=== PATIENT | male | born 1950 | race Caucasian/White ===

== ENCOUNTER 2022-11-21 11:09 | Day surgery (SDC) | payer MEDICARE, BC, SELFPAY ==
[2022-11-21 11:24] VITALS: BP 163/87; PULSE 64; RESP 17; TEMP 36.4; O2SAT 97
[2022-11-21] MEDS: Tropicam./Phenyleph. (1/2.5%) 5 ML BTL OD ×3 (11:33→11:42)
--- NOTE | 2022-11-21 11:41 | W.ANESPRE ---
General Info Date of Service Date Performed: 11/21/22 Height: 6 ft Weight: 111.13 kg Body Mass Index (BMI): 33.2 Surgical Procedure: Operation Date: 11/21/22 14:40 Proposed Procedure Side Surgeon p Cataract Extraction with IOL Implant Right Sourav Joshi MD Meds Allergies and Home Medications Allergies Allergy/AdvReac Type Severity Reaction Status Date / Time cholestyramine Allergy Intermediate Unverified 11/21/22 11:17 [From Questran] metformin Allergy Intermediate Skin Rash Unverified 11/21/22 11:17 ramipril [From Altace] Allergy Intermediate Unverified 11/21/22 11:17 allopurinol Allergy Mild Unverified 11/21/22 11:17 diltiazem Allergy Unknown Unverified 11/21/22 11:17 niacin Allergy Unknown Unverified 11/21/22 11:17 isosorbide Allergy Unverified 11/21/22 11:17 sucrose [From Questran] Allergy Unverified 11/21/22 11:17 Home Medication Medication Instructions Recorded Lipitor 80 mg tablet (atorvastatin) 80 mg PO DAILY 03/02/17 Mitigare 0.6 mg capsule 0.6 mg PO DIRECTED 03/02/17 (colchicine) Nitrostat 0.4 mg sublingual tablet 0.4 mg sublingual DIRECTED 03/02/17 (nitroglycerin) Norvasc 5 mg tablet (amlodipine) 5 mg PO DAILY 03/02/17 Zetia 10 mg tablet (ezetimibe) 10 mg PO DAILY 03/02/17 atenolol 50 mg tablet 50 mg PO DAILY 03/02/17 aspirin 81 mg tablet,delayed 81 mg PO DAILY 11/18/22 release fluticasone propionate 50 1 spray intranasal DAILY 11/18/22 mcg/actuation nasal spray,suspension glipizide 10 mg tablet, extended 10 mg PO DAILY 11/18/22 release 24 hr indomethacin 25 mg capsule 25 mg PO DIRECTED 11/18/22 lisinopril 20 mg tablet 20 mg PO DAILY 11/18/22 metronidazole 0.75 % topical gel 1 applic topical DIRECTED 11/18/22 semaglutide 0.25 mg or 0.5 mg (2 0.5 mg subcut DIRECTED 11/18/22 mg/3 mL) subcutaneous pen injector ([employer]) Current Visit Medications: Current Medications Generic Name Dose Route Start Last Admin Trade Name Freq PRN Reason Stop Dose Admin Acetaminophen 1,000 mg 11/21/22 06:00 Acetaminophen 500 Mg Tab PO Q4H PRN PRN Miscellaneous Medication 0 ml 11/21/22 06:00 11/21/22 11:38 Tropicam./Phenyleph. (1/2.5%) 5 Ml Btl OD 1 drp DIRECTED JOHN Administration Miscellaneous Medication 0 ml 11/21/22 06:00 Prednisolone 1%, Moxifloxacin 0.5%, Nepafenac 0.1% 5ml Btl OD DIRECTED JOHN Tetracaine HCl 0 ml 11/21/22 06:00 Tetracaine 0.5% 4 Ml Btl OD DIRECTED JOHN PFSH Active Problems Active Problems: Problem Status Onset Code Nuclear age-related cataract, right eye H25.11 Posterior subcapsular age-related cataract, right eye H25.041 Medical History Medical History CAD (coronary artery disease) CKD (chronic kidney disease) Closed right ankle fracture Gout Hyperlipidemia Hypertension Rosacea Type 2 diabetes mellitus Surgical History Surgical History Colonoscopy - MAC (04/16/17) Coronary Artery Bypass G[place] (CABG) x2 1986, 1998 Vasectomy Tobacco Smoking/Tobacco Use Status: Former Tobacco Use Alcohol Alcohol Intake: current Alcohol intake frequency: holidays/special occasions only Alcohol type: beer Substance Use Substance use: Never Substance use type: does not use Counseling provided: treatment program Vital Signs and Lab Results Vital Signs Most Recent Vital Signs in EMR: Most Recent Vital Signs Temp Pulse Resp BP Pulse Ox 36.4 C L 64 17 163/87 H 97 11/21/22 11:24 11/21/22 11:24 11/21/22 11:24 11/21/22 11:24 11/21/22 11:24 Point of Care Results Point of Care Results: Finger Stick Blood Glucose 130 11/21/22 11:24 Lab Results Blood Type / Crossmatch: No Data to Display Complete Blood Count: No Data to Display Complete Metabolic Panel: No Data to Display Liver Function Panel: No Data to Display Coagulation Panel: No Data to Display Cardiac Panel: No Data to Display Arterial Blood Gas: No Data to Display Venous Blood Gas: No Data to Display Pancreas Panel: No Data to Display Thyroid Panel: No Data to Display Infectious Disease: No Data to Display Blood Cultures: No Data to Display Toxicology Panel: No Data to Display Anesthesia Assessment and Plan Anesthesia History Personal History: No History of Anesthesia Complications Family History: No Family History of Anesthesia Complications Exercise Tolerance Exercise Tolerance: Metabolic Equivalents>4 Pertinent Negatives Pertinent Negatives: No Symptoms of GERD Cardiac & Pulmonary Exam Cardiac Exam: Normal S1/S2 Heart Sounds Pulmonary Exam: Clear Bilateral Breath Sounds Implantable Cardiac Device Does patient have a Pacemaker or an ICD?: No Airway Exam Known Difficult Airway: No Previous Airway Comments:: Cabg 87/99. Sees manager regional Mallampati Class: 2 Mouth Opening: Normal (> 3cm) Thyromental Distance: Greater than 3 cm Neck Range of Motion: Full ROM Neck Circumference: Thick Teeth Condition: Normal Dentition ASA Classification ASA Score: ASA 3 Emergency Case?: No NPO Status NPO Status: NPO Clears >2 hours, Solids >8 hours Anesthesia Plan Resuscitation Status: Full Code Anesthesia Technique: MAC Anesthesia Airway Planned: Natural Airway Monitors Used: Standard Monitors
[2022-11-21 11:47] VITALS: BMI 33.2
[2022-11-21] MEDS: Tetracaine 0.5% 4 ML BTL OD (12:27)
[2022-11-21] MEDS: Balanced Salt Soln.-PLUS 500 ML BAG (12:27)
[2022-11-21] MEDS: Duovisc Viscoelastic System EACH 1 EACH (12:28)
[2022-11-21] MEDS: Lidocaine 1% Pres-Free 5 ML VIAL (12:28)
[2022-11-21] MEDS: Povidone-Iodine Ophth 30 ML BTL (12:29)
[2022-11-21] MEDS: Phenylephrine/Lidocaine (15/10) MG/ML 1 ML VIAL (12:29)
[2022-11-21 12:43] VITALS: BP 136/58; PULSE 59; RESP 18; TEMP 36.6; O2SAT 98
--- NOTE | 2022-11-21 12:43 | PDOC.DSDIS_ITS ---
Date of service: 11/21/22 Time of Service: 12:43 Discharge Plan Disposition Patient Disposition: Home Discharge Details Attending Provider: Sourav Joshi Primary Care Provider: Lori Arnett Home Meds and New Rx's Prescriptions: No Action atorvastatin [Lipitor] 80 MG tablet 80 mg PO DAILY amlodipine [Norvasc] 5 MG tablet 5 mg PO DAILY nitroglycerin [Nitrostat] 0.4 MG tablet, sublingual 0.4 mg Sublingual DIRECTED atenolol 50 MG tablet 50 mg PO DAILY ezetimibe [Zetia] 10 MG tablet 10 mg PO DAILY colchicine [Mitigare] 0.6 MG capsule 0.6 mg PO DIRECTED glipizide 10 mg Tablet Extended Release 24hr 10 mg PO DAILY lisinopril 20 mg Tablet 20 mg PO DAILY aspirin [Aspir-81] 81 mg Tablet,Delayed Release (Dr/Ec) 81 mg PO DAILY indomethacin 25 mg Capsule 25 mg PO DIRECTED fluticasone propionate [Flonase] 50 mcg/actuation [place],Suspension 1 spray INTRANASAL DAILY metronidazole [Metrogel] 0.75 % Gel 1 applic TOPICAL DIRECTED Ozempic 0.25 mg or 0.5 mg (2 mg/3 mL) Pen Injector 0.5 mg SUBCUT DIRECTED Discharge Instructions Stand Alone Forms: Post-op Topical CataractGarth (DSU) Discharge Orders Discharge Orders: Discharge Order (Routine); Ordered 11/21/22 Ordered By: Sourav Joshi DS: Diagnosis Discharge Diagnosis (1) Nuclear age-related cataract, right eye: Status: Resolved (2) Posterior subcapsular age-related cataract, right eye: Status: Resolved
--- NOTE | 2022-11-21 12:44 | W.PM.OP ---
Date of service: 11/21/22 Time of Service: 12:45 Operative Note Operative Note DATE OF PROCEDURE: 11/21/22 PRE-OP DIAGNOSIS: Nuclear/posterior subcapsular cataract, right eye POST-OP DIAGNOSIS: same PROCEDURE: Cataract extraction using phacoemulsification with intraocular lens implant, right eye SURGEON: Sourav Joshi ANESTHESIA TYPE: Local By Surgeon and MAC Refer to Anesthesia Record ESTIMATED BLOOD LOSS: 0 PATHOLOGY: none sent COMPLICATIONS: None Patient was transported to: same day Patient's condition: stable Implants: Christofer & Christofer Tecnis Eyhance [id number] Indications: Progressive visual loss due to cataract, right eye Procedure Description: CATARACT SURGERY OPERATIVE REPORT PREOPERATIVE DIAGNOSIS: 1. Nuclear/posterior subcapsular cataract, right eye POSTOPERATIVE DIAGNOSIS: Same OPERATION: 1. Cataract extraction using phacoemulsification with posterior chamber intraocular lens implant, right eye. IOL: IOL Fiber Locking Supervisor/Model: Christofer & Christofer Tecnis Eyhance DIB00 IOL Power: + 22.5 diopters IOL Serial Number: [id number] Optic Diameter: 6.0mm Haptic/Overall Diameter: 13.0mm PHACO INFO: Mario [employer]cast Readyurion Vision System with OZil and Active Fluidics Cumulative Dispersed Energy (CDE): 4.06 seconds SURGEON: Sourav Joshi MD, ADRIANA ANESTHESIA: Monitored Anesthesia Care (MAC), with local sub-tenon's anesthetic infiltration COMPLICATIONS: None SPECIMENS: None INDICATIONS FOR PROCEDURE: The patient is a 72-year-old gentleman with history of diminished visual acuity in his right eye secondary to the development of nuclear/posterior subcapsular cataract. He is significantly symptomatic that he desires cataract surgery and attempt to improve and maximize his vision. The option of cataract surgery was offered to the patient and he wished to proceed. See office notes for detailed information. PROCEDURE: The correct surgical eye was identified and marked as the right eye and the pupil was dilated in the preoperative area using mydriatics and cycloplegics. The dilated pupil size was 7.0 mm. The patient elected to proceed without oral sedation. The patient was brought to the operating room where cardiopulmonary monitoring was instituted and surgical time-out was performed, confirming the correct operative eye and IOL power. Topical anesthesia was administered and ophthalmic povidone-iodine 5% was instilled into the conjunctival fornices. Lidocaine gel was applied to the cornea and the olivia-ocular area was prepped with Betadine 10% solution and draped in the usual sterile fashion for intraocular surgery, including an aperture drape. A Tegaderm transparent film dressing was cut in half and used to cover the lashes and lid margins. Care was taken to sequester the lashes and lid margins under the Tegaderm dressing. A lid speculum was placed between the lids of the operative eye and the Mario LuxOR Revalia operating microscope was maneuvered into position. Kayla scissors were then used to make a conjunctival buttonhole approximately 6mm posterior to the limbus in the inferonasal quadrant. Blunt dissection was carried out to expose bare sclera, and a blunt-tipped sub-tenon?s anesthesia cannula was introduced and passed posteriorly along the globe where non-preserved plain lidocaine was injected into posterior sub-Tenon?s space. A sideport knife was used to make a paracentesis port inferotemporally. Intraocular phenylephrine/lidocaine was injected into the anterior chamber. The anterior chamber was filled with viscoelastic. A keratome knife was used to construct a 2-plane near-clear corneal tunnel extending 2.0mm into clear cornea superiortemporally. A flap was raised on the anterior capsule and capsulorhexis forceps were used to complete a continuous curvilinear capsulorhexis of 5.0 mm. Balanced salt solution was then used to perform cortical cleaving hydrodissection and nuclear hydrodelineation until the lens could be freely rotated within the capsular bag. The lens nucleus was then disassembled and removed within the capsular bag and iris plane using phacoemulsification. Residual cortical material was removed using the I/A handpiece. The posterior capsule was carefully polished to remove as much residual lens epithelial cells as safely possible. The capsular bag was then inflated and the anterior chamber deepened with viscoelastic. The lens implant described above was inserted into the capsular bag using the Christofer and Ambrocio Simplicity pre-loaded injector. A Kuglen hook was used to dial the IOL into position. Residual viscoelastic was then removed first from posterior to the IOL, then from the anterior chamber using the I/A handpiece. The lens implant was noted to center nicely within the capsular bag. The incisions were stromally hydrated, and the anterior chamber was reformed using BSS. Then 0.5cc of moxifloxacin 1.0mg/ml were injected into the capsular bag and anterior chamber. The incisions were checked with a Weck spear and found to be secure. Several drops of ophthalmic povidone-iodine 5% were then applied to the eye followed by two drops of Imprimis combination prednisolone/moxifloxacin/nepafenac solution. The drapes were removed and a clear plastic protective eye shield was placed over the eye. The patient was then returned to Same Day Surgery in stable condition.
--- NOTE | 2022-11-21 13:10 | W.ANESPOSTOP ---
Postoperative Evaluation Date, Time and Location Date Performed: 11/21/22 Time Performed: 12:50 Patient Location: Day Surgery Unit Vital Signs Most Recent Imported Vital Signs: Most Recent Vital Signs Temp Pulse Resp BP Pulse Ox 36.6 C 59 L 18 136/58 L 98 11/21/22 12:43 11/21/22 12:43 11/21/22 12:43 11/21/22 12:43 11/21/22 12:43 Pain Score Most Recent Pain Score: Most Recent Pain Score Pain Level 0 11/21/22 12:43 Assessment Mental Status: Awake (Alert & Oriented to Patient Baseline) Airway and Respiratory Function: Patent airway with normal (patient baseline) respiratory exam Cardiovascular Function: Hemodynamically Stable Hydration Status: Adequately Hydrated Nausea & Vomiting: No Nausea or Vomiting Pain: Pt. Denies Any Pain Peripheral Nerve Block: Patient did not receive a nerve block
== END 2022-11-21 13:05 | disposition home or self-care (01) ==
LOC: SUR 11:10
PROVIDERS: PCP Family Medicine; Visit Provider Ophthalmology
PROC: (CPT 66984; principal; 2022-11-21 14:30)
DX: H25.11 Age-related nuclear cataract, right eye (principal); H25.041 Posterior subcapsular polar age-related cataract, right eye; I10 Essential (primary) hypertension
CPT/HCPCS: 66984; V2632

== ENCOUNTER 2022-12-05 09:36 | Day surgery (SDC) | payer MEDICARE, BC, SELFPAY ==
--- NOTE | 2022-12-05 06:45 | ANES.PREOP_ITS ---
General Info Date of Service Date Performed: 12/05/22 Height: 6 ft Weight: 111.13 kg Body Mass Index (BMI): 33.2 Surgical Procedure: Operation Date: 12/05/22 11:25 Proposed Procedure Side Surgeon p Cataract Extraction with IOL Implant Left Sourav Joshi MD Meds Allergies and Home Medications Allergies Allergy/AdvReac Type Severity Reaction Status Date / Time cholestyramine Allergy Intermediate Unverified 12/05/22 10:13 [From Questran] metformin Allergy Intermediate Skin Rash Unverified 12/05/22 10:13 ramipril [From Altace] Allergy Intermediate Unverified 12/05/22 10:13 allopurinol Allergy Mild Unverified 12/05/22 10:13 diltiazem Allergy Unknown Unverified 12/05/22 10:13 niacin Allergy Unknown Unverified 12/05/22 10:13 isosorbide Allergy Unverified 12/05/22 10:13 sucrose [From Questran] Allergy Unverified 12/05/22 10:13 Home Medication Medication Instructions Recorded Lipitor 80 mg tablet (atorvastatin) 80 mg PO DAILY 03/02/17 Mitigare 0.6 mg capsule 0.6 mg PO DIRECTED 03/02/17 (colchicine) Nitrostat 0.4 mg sublingual tablet 0.4 mg sublingual DIRECTED 03/02/17 (nitroglycerin) Norvasc 5 mg tablet (amlodipine) 5 mg PO DAILY 03/02/17 Zetia 10 mg tablet (ezetimibe) 10 mg PO DAILY 03/02/17 atenolol 50 mg tablet 50 mg PO DAILY 03/02/17 aspirin 81 mg tablet,delayed 81 mg PO DAILY 11/18/22 release fluticasone propionate 50 1 spray intranasal DAILY 11/18/22 mcg/actuation nasal spray,suspension glipizide 10 mg tablet, extended 10 mg PO DAILY 11/18/22 release 24 hr indomethacin 25 mg capsule 25 mg PO DIRECTED 11/18/22 lisinopril 20 mg tablet 20 mg PO DAILY 11/18/22 metronidazole 0.75 % topical gel 1 applic topical DIRECTED 11/18/22 semaglutide 0.25 mg or 0.5 mg (2 0.5 mg subcut DIRECTED 11/18/22 mg/3 mL) subcutaneous pen injector ([employer]) Current Visit Medications: Current Medications Generic Name Dose Route Start Last Admin Trade Name Mingoq PRN Reason Stop Dose Admin Acetaminophen 1,000 mg 12/05/22 06:00 Acetaminophen 500 Mg Tab PO 01/04/23 05:59 Q4H PRN PRN Balanced Salt Solution 500 ml 12/05/22 06:00 Balanced Salt Soln.-Plus 500 Ml Bag OP 01/04/23 05:59 DIRECTED JHON Miscellaneous Medication 0 ml 12/05/22 06:00 Prednisolone 1%, Moxifloxacin 0.5%, Nepafenac 0.1% 5ml Btl OS 01/04/23 05:59 DIRECTED JOHN Miscellaneous Medication 0 ml 12/05/22 06:00 Tropicam./Phenyleph. (1/2.5%) 5 Ml Btl OS 01/04/23 05:59 DIRECTED JOHN Tetracaine HCl 0 ml 12/05/22 06:00 Tetracaine 0.5% 4 Ml Btl OS 01/04/23 05:59 DIRECTED JOHN PFSH Active Problems Active Problems: Problem Status Onset Code Nuclear age-related cataract, right eye H25.11 Posterior subcapsular age-related cataract, right eye H25.041 Medical History Medical History CAD (coronary artery disease) CKD (chronic kidney disease) Closed right ankle fracture Gout Hyperlipidemia Hypertension Rosacea Type 2 diabetes mellitus Surgical History Surgical History Colonoscopy - MAC (04/16/17) Coronary Artery Bypass [place] (CABG) x2 1986, 1998 Vasectomy Tobacco Smoking/Tobacco Use Status: Former Tobacco Use Alcohol Alcohol Intake: current Alcohol intake frequency: holidays/special occasions only Alcohol type: beer Substance Use Substance use: Never Substance use type: does not use Counseling provided: treatment program Vital Signs and Lab Results Vital Signs Most Recent Vital Signs in EMR: Temp Pulse Resp BP Pulse Ox 36.5 C 59 L 17 151/71 H 98 12/05/22 10:05 12/05/22 10:05 12/05/22 10:05 12/05/22 10:05 12/05/22 10:05 Lab Results Blood Type / Crossmatch: No Data to Display Complete Blood Count: No Data to Display Complete Metabolic Panel: No Data to Display Liver Function Panel: No Data to Display Coagulation Panel: No Data to Display Cardiac Panel: No Data to Display Arterial Blood Gas: No Data to Display Venous Blood Gas: No Data to Display Pancreas Panel: No Data to Display Thyroid Panel: No Data to Display Infectious Disease: No Data to Display Blood Cultures: No Data to Display Toxicology Panel: No Data to Display Anesthesia Assessment and Plan Anesthesia History Personal History: No History of Anesthesia Complications Family History: No Family History of Anesthesia Complications Exercise Tolerance Exercise Tolerance: Metabolic Equivalents>4 Cardiac & Pulmonary Exam Cardiac Exam: Normal S1/S2 Heart Sounds Pulmonary Exam: Clear Bilateral Breath Sounds Implantable Cardiac Device Does patient have a Pacemaker or an ICD?: No Airway Exam Known Difficult Airway: No Mallampati Class: 2 Mouth Opening: Normal (> 3cm) Thyromental Distance: Greater than 3 cm Neck Range of Motion: Full ROM Neck Circumference: Thick Teeth Condition: Normal Dentition ASA Classification ASA Score: ASA 3 Emergency Case?: No NPO Status NPO Status: NPO Clears >2 hours, Solids >8 hours Anesthesia Plan Resuscitation Status: Full Code Anesthesia Technique: MAC Anesthesia Airway Planned: Natural Airway Monitors Used: Standard Monitors Preoperative Comments:: 72 yo male for cataract removal. previous cataract without sedation. Sig PMHx: CAD, CKD, HTN, DM2, CABG x 2 1987, former smoker.
[2022-12-05 10:05] VITALS: BP 151/71; PULSE 59; RESP 17; TEMP 36.5; O2SAT 98
[2022-12-05] MEDS: Tropicam./Phenyleph. (1/2.5%) 5 ML BTL OS ×3 (10:20→10:34)
[2022-12-05 10:42] VITALS: BMI 33.2
[2022-12-05] MEDS: Tetracaine 0.5% 4 ML BTL OS (11:30)
[2022-12-05] MEDS: Povidone-Iodine Ophth 30 ML BTL (11:30)
[2022-12-05] MEDS: Balanced Salt Soln.-PLUS 500 ML BAG OP (11:36)
[2022-12-05] MEDS: Lidocaine 1% Pres-Free 5 ML VIAL (11:38)
[2022-12-05] MEDS: Duovisc Viscoelastic System EACH 1 EACH (11:38)
[2022-12-05] MEDS: Phenylephrine/Lidocaine (15/10) MG/ML 1 ML VIAL (11:38)
[2022-12-05 11:55] VITALS: BP 148/70; PULSE 57; RESP 18; TEMP 36.5; O2SAT 97
--- NOTE | 2022-12-05 11:56 | W.PM.DSUDISC ---
Date of service: 12/05/22 Time of Service: 11:56 Discharge Plan Disposition Patient Disposition: Home Discharge Details Attending Provider: Sourav Joshi Primary Care Provider: Lori Arnett Home Meds and New Rx's Prescriptions: No Action atorvastatin [Lipitor] 80 MG tablet 80 mg PO DAILY amlodipine [Norvasc] 5 MG tablet 5 mg PO DAILY nitroglycerin [Nitrostat] 0.4 MG tablet, sublingual 0.4 mg Sublingual DIRECTED atenolol 50 MG tablet 50 mg PO DAILY ezetimibe [Zetia] 10 MG tablet 10 mg PO DAILY colchicine [Mitigare] 0.6 MG capsule 0.6 mg PO DIRECTED glipizide 10 mg Tablet Extended Release 24hr 10 mg PO DAILY lisinopril 20 mg Tablet 20 mg PO DAILY aspirin [Aspir-81] 81 mg Tablet,Delayed Release (Dr/Ec) 81 mg PO DAILY indomethacin 25 mg Capsule 25 mg PO DIRECTED fluticasone propionate [Flonase] 50 mcg/actuation [place],Suspension 1 spray INTRANASAL DAILY metronidazole [Metrogel] 0.75 % Gel 1 applic TOPICAL DIRECTED Ozempic 0.25 mg or 0.5 mg (2 mg/3 mL) Pen Injector 0.5 mg SUBCUT DIRECTED Discharge Instructions Stand Alone Forms: Post-op Topical CataractGarth (DSU) Discharge Orders Discharge Orders: Discharge Order (Routine); Ordered 12/05/22 Ordered By: Sourav Joshi DS: Diagnosis Discharge Diagnosis (1) Nuclear age-related cataract, left eye: Status: Resolved (2) Posterior subcapsular age-related cataract of left eye: Status: Resolved
--- NOTE | 2022-12-05 11:57 | W.PM.OP ---
Date of service: 12/05/22 Time of Service: 11:57 Operative Note Operative Note DATE OF PROCEDURE: 12/05/22 PRE-OP DIAGNOSIS: Nuclear/posterior subcapsular cataract, left eye POST-OP DIAGNOSIS: same PROCEDURE: Cataract extraction using phacoemulsification with intraocular lens implant, left eye SURGEON: Sourav Joshi ANESTHESIA TYPE: Local By Surgeon and MAC Refer to Anesthesia Record PATHOLOGY: none sent COMPLICATIONS: None Patient was transported to: same day Patient's condition: stable Implants: Christofer and Christofer Tecnis Eyhance DIB00 Indications: Progressive decreased vision due to cataract, left eye Procedure Description: CATARACT SURGERY OPERATIVE REPORT PREOPERATIVE DIAGNOSIS: 1. Nuclear/posterior subcapsular cataract, left eye POSTOPERATIVE DIAGNOSIS: Same OPERATION: 1. Cataract extraction using phacoemulsification with posterior chamber intraocular lens implant, left eye. IOL: IOL Custom Wood Stair Builder/Model: Christofer & Christofer Tecnis Eyhance DIB00 IOL Power: + 22.0 diopters IOL Serial Number: [id number] Optic Diameter: 6.0 mm Haptic/Overall Diameter: 13.0 mm PHACO INFO: Mario [employer]ion Vision System with OZil and Active Fluidics Cumulative Dispersed Energy (CDE): 6.26 seconds SURGEON: Sourav Joshi MD, ADRIANA ANESTHESIA: Monitored [facility] ([facility]), with local sub-tenon's anesthetic infiltration COMPLICATIONS: None SPECIMENS: None INDICATIONS FOR PROCEDURE: The patient is a 72-year-old gentleman with history of diminished visual acuity in both eyes secondary to the development of bilateral nuclear/posterior subcapsular cataract. He has already undergone cataract surgery in the right eye and is doing well postoperatively. He now presents for cataract surgery in the left eye. See office notes for detailed information. PROCEDURE: The correct surgical eye was identified and marked as the left eye and the pupil was dilated in the preoperative area using mydriatics and cycloplegics. The dilated pupil size was 7.0 mm. The patient elected to proceed without oral sedation. The patient was brought to the operating room where cardiopulmonary monitoring was instituted and surgical time-out was performed, confirming the correct operative eye and IOL power. Topical anesthesia was administered and ophthalmic povidone-iodine 5% was instilled into the conjunctival fornices. The olivia-ocular area was prepped with Betadine 10% solution and draped in the usual sterile fashion for intraocular surgery, including an aperture drape. A Tegaderm transparent film dressing was cut in half and used to cover the lashes and lid margins. Care was taken to sequester the lashes and lid margins under the Tegaderm dressing. A lid speculum was placed between the lids of the operative eye and the Mario Lux[employer] Revalia operating microscope was maneuvered into position. Kayla scissors were then used to make a conjunctival buttonhole approximately 6mm posterior to the limbus in the inferonasal quadrant. Blunt dissection was carried out to expose bare sclera, and a blunt-tipped sub-tenon?s anesthesia cannula was introduced and passed posteriorly along the globe where non-preserved plain lidocaine was injected into posterior sub-Tenon?s space. A sideport knife was used to make a paracentesis port superiorly/superiortemporally. Intraocular phenylephrine/lidocaine was injected int the anterior chamber.. The anterior chamber was filled with viscoelastic. A keratome knife was used to construct a 2-plane near-clear corneal tunnel extending 2.0mm into clear cornea temporally. A flap was raised on the anterior capsule and capsulorhexis forceps were used to complete a continuous curvilinear capsulorhexis of 5.0 mm. Balanced salt solution was then used to perform cortical cleaving hydrodissection and nuclear hydrodelineation until the lens could be freely rotated within the capsular bag. The lens nucleus was then disassembled and removed within the capsular bag and iris plane using phacoemulsification. Residual cortical material was removed using the 45-degree angled silicone I/A tip with 0.3mm port. The posterior capsule was carefully polished to remove as much residual lens epithelial cells as safely possible. The capsular bag was then inflated and the anterior chamber deepened with viscoelastic. The lens implant described above was inserted into the capsular bag using the Christofer and Christofer Simplicity pre-loaded injector. . A Kuglen hook was used to dial the IOL into position. Residual viscoelastic was then removed first from posterior to the IOL, then from the anterior chamber using the I/A handpiece. The lens implant was noted to center nicely within the capsular bag. The incisions were stromally hydrated, and the anterior chamber was reformed using BSS. Then 0.5cc of moxifloxacin 1.0mg/ml were injected into the capsular bag and anterior chamber. The incisions were checked with a Weck spear and found to be secure. Several drops of ophthalmic povidone-iodine 5% were then applied to the eye followed by two drops of Imprimis combination prednisolone/moxifloxacin/nepafenac solution. The drapes were removed and a clear plastic protective eye shield was placed over the eye. The patient was then returned to [facility] Day Surgery in stable condition.
--- NOTE | 2022-12-05 12:07 | W.ANESPOSTOP ---
Postoperative Evaluation Date, Time and Location Date Performed: 12/05/22 Time Performed: 12:07 Patient Location: Day Surgery Unit Vital Signs Most Recent Imported Vital Signs: Most Recent Vital Signs Temp Pulse Resp BP Pulse Ox 36.5 C 57 L 18 148/70 H 97 12/05/22 11:55 12/05/22 11:55 12/05/22 11:55 12/05/22 11:55 12/05/22 11:55 Pain Score Most Recent Pain Score: Most Recent Pain Score Pain Level 0 12/05/22 11:55 Assessment Mental Status: Awake (Alert & Oriented to Patient Baseline) Airway and Respiratory Function: Patent airway with normal (patient baseline) respiratory exam Cardiovascular Function: Hemodynamically Stable Hydration Status: Adequately Hydrated Nausea & Vomiting: No Nausea or Vomiting Pain: Pt. Denies Any Pain Peripheral Nerve Block: Patient did not receive a nerve block
== END 2022-12-05 12:12 | disposition home or self-care (01) ==
LOC: SUR 09:36
PROVIDERS: PCP Family Medicine; Visit Provider Ophthalmology
PROC: (CPT 66984; principal; 2022-12-05 11:15)
DX: H25.12 Age-related nuclear cataract, left eye (principal); H25.042 Posterior subcapsular polar age-related cataract, left eye; I10 Essential (primary) hypertension; Z98.41 Cataract extraction status, right eye
CPT/HCPCS: 66984; V2632